=== PATIENT | female | born 1975 | race African-American/Black ===

== ENCOUNTER → 2020-12-11 | Outpatient (CLI) | payer BC, OTHER ==
[2016-08-19 08:20] VITALS: BP 123/79
[~2020-12-11] MED LIST: HYDR-3165 PO; PENI500T PO
--- NOTE | 2020-12-11 09:19 | RAD ---
INDICATION: Reason: MENORRHAGIA / Spl. Instructions: / History: COMPARISON: None. TECHNIQUE: Grayscale and color ultrasound images uterus and adnexa. Transabdominal and transvaginal images obtained. Transvaginal images were needed to better visualize structures that were limited on transabdominal imaging. FINDINGS: Uterus: 113 x 77 x 61 mm. Endometrial stripe is 3 mm. Right Ovary: 37 x 25 x 14 mm. Left Ovary: 33 x 22 x 19 mm. Vascular flow identified to bilateral ovaries. There are some nabothian cysts. Small free fluid in pelvis. IMPRESSION: * Vascular flow seen to the ovaries. * Suspected nabothian cysts Electronically signed by: Petros Murdock MD (12/11/2020 9:16 AM) [id number]
== END ==
LOC: US 07:37
PROVIDERS: ATTEND Obstetrics & Gynecology
DX: N92.0 Excessive and frequent menstruation with regular cycle (principal)
CPT/HCPCS: 76830; 76856